=== PATIENT | male | born 1950 | race Caucasian/White ===

== ENCOUNTER 2023-11-30 11:29 | Day surgery (SDC) | payer MEDICARE, SELFPAY ==
--- NOTE | 2023-11-29 09:36 | HO.ANESPROP2 ---
Documented by User: Cecilia Sheikh NP 11/29/23 09:37 HPI - Anesthesia Eval Consult details Narrative: 73yo M for Colonoscopy [facility] [place] Past Medical History Medical History (Updated 11/30/23 @ 12:38 by Kimberley Ruiz RN) Sleep apnea Anxiety Insomnia Elevated cholesterol Hypothyroid Surgical History Surgical History (Updated 11/30/23 @ 12:37 by Kimberley Ruiz RN) History of ankle surgery History of prostate surgery H/O colonoscopy Social History Social History Patient Tobacco Use Status: Never used Tobacco Use of substances other than those prescribed or required for medical reasons: No Are you DNR?: No Advance Directives: No Advance Directives Information Provided: Yes Meds Allergies Allergy/AdvReac Type Severity Reaction Status Date / Time No Known Allergies Allergy Verified 11/30/23 12:38 Home Medications Medication Instructions Recorded Confirmed Last Taken Type citalopram 20 mg tablet 20 mg PO DAILY 11/28/23 11/30/23 Unknown History levothyroxine 25 mcg tablet 25 mcg PO DAILY 11/28/23 11/30/23 Unknown History meclizine 25 mg tablet 25 mg PO DAILY PRN Vertigo 11/28/23 11/30/23 Unknown History simvastatin 40 mg tablet 40 mg PO BEDTIME 11/28/23 11/30/23 Unknown History melatonin 5 mg tablet 5 mg PO BEDTIME PRN Insomnia 11/30/23 11/30/23 Unknown History Exam Height,Weight and Vital Signs: Height 6 ft Assessment and Plan Assessment Anesthesia Assessment: Chart Reviewed Documented by User: Jorge Landers MD 11/30/23 14:11 [facility] [place] Past Medical History Medical History (Updated 11/30/23 @ 12:38 by Kimberley Ruiz RN) Sleep apnea Anxiety Insomnia Elevated cholesterol Hypothyroid Family History Family history of problems with anesthesia: No Surgical History Surgical History (Updated 11/30/23 @ 12:37 by Kimberley Ruiz RN) History of ankle surgery History of prostate surgery H/O colonoscopy History of Problems with Anesthesia: No Social History Social History Patient Tobacco Use Status: Never used Tobacco Use of substances other than those prescribed or required for medical reasons: No Are you DNR?: No Advance Directives: No Advance Directives Information Provided: Yes Meds Allergies Allergy/AdvReac Type Severity Reaction Status Date / Time No Known Allergies Allergy Verified 11/30/23 12:38 Home Medications Medication Instructions Recorded Confirmed Last Taken Type citalopram 20 mg tablet 20 mg PO DAILY 11/28/23 11/30/23 Unknown History levothyroxine 25 mcg tablet 25 mcg PO DAILY 11/28/23 11/30/23 Unknown History meclizine 25 mg tablet 25 mg PO DAILY PRN Vertigo 11/28/23 11/30/23 Unknown History simvastatin 40 mg tablet 40 mg PO BEDTIME 11/28/23 11/30/23 Unknown History melatonin 5 mg tablet 5 mg PO BEDTIME PRN Insomnia 11/30/23 11/30/23 Unknown History Exam Airway Mallampati Class: I TM Dist: >3cm Neck ROM: Full Denture: Upper and Lower Heart: ok Lungs: ok Assessment and Plan Assessment Anesthesia Assessment: Anesthesia Plan Discussed Final Anesthetic Review Family History of Problems with Anesthesia: No History of Problems with Anesthesia: No NPO: Yes ASA Class: III Final Preanesthetic Review: No Changes in Pt Med Stat, Meds/Allgs Chart Reviewed, Consent Obtained/Reviewed and Anes Risks/Benef Reviewed Patient Risk: Intermediate Procedure Risk: Low Anesthetic Plan Anesthetic Plan: MAC: and Agree w/ Assess. and Plan Disposition: Standard PACU
[2023-11-30 12:40] VITALS: BMI 35.7
[2023-11-30 12:48] VITALS: BP 156/94; PULSE 70; RESP 15; TEMP 36.3; O2SAT 99
[2023-11-30] MEDS: Lactated Ringers 1,000 ML 100 ML IVCONT (13:14)
--- NOTE | 2023-11-30 13:52 | MHC.SHP ---
Pre-Procedural Eval Section A - 24 Hr Update-Section A only Date of Service: 11/30/23 The patient is an INPATIENT: No Changes since office visit: No Cold of Flu in the past 2 weeks, No New Medical Problems, No Changes in Medication and No Patient answered all questions The patient has been examined within 24 hours of the surgical procedure. The History & Physical has been completed within 30 days and I have reviewed it.: Yes Section B - Complete if H&P > 30 days Chief Complaint: Encounter for screening for malignant neoplasm of Allergies: Allergies Allergy/AdvReac Type Severity Reaction Status Date / Time No Known Allergies Allergy Verified 11/30/23 12:38 Plan I have reviewed the history and physical and performed a pertinent physical examination on my patient. No changes have occurred unless specified. Time Spent With Patient Time: Total time managing care of this patient today ____ minutes.
[2023-11-30 14:40] VITALS: BP 122/88; PULSE 62; RESP 18; TEMP 36.3
[2023-11-30 14:55] VITALS: BP 142/93; PULSE 65; RESP 18; TEMP 36.2; O2SAT 97
--- NOTE | 2023-11-30 18:25 | OP_ITS ---
DATE OF SERVICE: 11/30/2023 SURGEON: Jhonatan Emery MD INDICATIONS: Colon cancer screening and prior history of adenomatous colon polyps. PREOPERATIVE DIAGNOSIS: POSTOPERATIVE DIAGNOSIS: PROCEDURE PERFORMED: Colonoscopy to the terminal ileum, snare polypectomy and biopsy. ESTIMATED BLOOD LOSS: COMPLICATIONS: ANESTHESIA: Monitored anesthesia care. ASSISTANTS: SPECIMENS: DESCRIPTION OF PROCEDURE: A history and physical were performed. The risks and benefits of the procedure were explained to the patient. Informed consent was obtained. The patient was placed in the left lateral decubitus position. A digital rectal exam was performed and was found to be normal. The Olympus pediatric video colonoscope was introduced into the rectum and advanced to the cecum. The cecum was identified by transillumination, palpation, and identification of ileocecal valve. Examination was performed and the scope was removed. He tolerated the procedure well and was taken to the recovery in stable condition. FINDINGS: The terminal ileum was examined and appeared normal. The visualized colonic mucosa was normal. In the cecum was approximately a 9 to 10 mm sessile polyp, which was removed with a snare and recovered via suction. In the right colon was a less than 5 mm sessile polyp, which was removed with a biopsy forceps. No other polyps were identified. There was moderate diverticulosis in the sigmoid. Retroflexed examination showed small internal hemorrhoids. IMPRESSION: Colon polyps. RECOMMENDATION: Follow up the biopsy results. MD LARRY Lira/SHAJI / [id number]
== END 2023-11-30 15:49 | disposition home or self-care (01) ==
PROVIDERS: PCP Internal Medicine; Visit Provider Internal Medicine Gastroenterology
PROC: 0DJD8ZZ Inspection of Lower Intestinal Tract, Via Natural or Artificial Opening Endoscopic (ICD-10-PCS; CPT 45378; principal; 2023-11-30 14:00)
DX: Z12.11 Encounter for screening for malignant neoplasm of colon (principal); D12.0 Benign neoplasm of cecum; D12.6 Benign neoplasm of colon, unspecified; K57.30 Diverticulosis of large intestine without perforation or abscess without bleeding; K64.8 Other hemorrhoids; Z86.010 Personal history of colon polyps; E78.00 Pure hypercholesterolemia, unspecified; Z79.02 Long term (current) use of antithrombotics/antiplatelets; Z79.899 Other long term (current) drug therapy
CPT/HCPCS: 45385; 45380; 88305